=== PATIENT | male | born 1955 | race Caucasian/White ===

== ENCOUNTER 2022-11-03 18:53 | Observation (INO) | payer MEDICARE, MEDICAID ==
[2022-11-03] MEDS ORDERED: Ondansetron PF 4 MG/2 ML Vial IVP PRN (20:24)
[2022-11-03] MEDS ORDERED: Acetaminophen 325 MG TAB PO PRN (20:24)
[2022-11-03] MEDS ORDERED: Calcium Carbonate 500 MG ChewTAB PO PRN (20:24)
[2022-11-03] MEDS ORDERED: Senokot S 8.6-50 MG TAB PO PRN (20:24)
[2022-11-03] MEDS ORDERED: Guaifenesin DM 100-10/5 ML UDCUP PO PRN (20:24)
[2022-11-03] MEDS ORDERED: Lactated Ringer's 500 ML IV SCH (20:30)
[2022-11-03] MEDS ORDERED: Lorazepam 0.5 MG TAB PO PRN (20:30)
[2022-11-03] MEDS ORDERED: Atorvastatin Calcium 10 MG TAB PO SCH (21:00)
[2022-11-03] MEDS ORDERED: QUEtiapine 100 MG TAB PO SCH (21:00)
[2022-11-03] MEDS ORDERED: Mirtazapine 15 MG Soltab PO SCH (21:00)
[2022-11-03] MEDS: levETIRAcetam 500 MG TAB PO SCH (21:44)
[2022-11-03] MEDS: Oxymetazoline HCl 0.05% ( 15 ML ) NASAL SCH (21:44)
[2022-11-03 22:36] VITALS: BMI 24.9
[2022-11-04 04:49] LABS: Anion Gap 13 mmol/L (10-20); BUN (Urea Nitrogen) 27 mg/dL (8.4-25.7); Calc. Creatinine Clearance 35 mL/min (70-130); Calcium 9.5 mg/dL (7.8-10.44); Carbon Dioxide 22 mmol/L (23-31); Chloride 110 mmol/L (98-107); Estimated GFR 33; Glucose 92 mg/dL (80-115); Potassium 4.1 mmol/L (3.5-5.1); Sodium 141 mmol/L (136-145)
[2022-11-04 05:08] LABS: Thyroid Stimulating Hormone 2.8829 uIU/mL (0.35-4.94)
[2022-11-04] MEDS ORDERED: Levothyroxine Sodium 25 MCG TAB PO SCH (06:00)
[2022-11-04] MEDS: levETIRAcetam 500 MG TAB PO SCH (08:37)
[2022-11-04] MEDS: Oxymetazoline HCl 0.05% ( 15 ML ) NASAL SCH (08:49)
[2022-11-04] MEDS ORDERED: Multivitamin W/ Minerals 1 TAB PO SCH (09:00)
[2022-11-04] MEDS ORDERED: Aspirin 81 mg Enteric Coated Tablet PO SCH (09:00)
[2022-11-04] MEDS ORDERED: Propranolol 10 MG TAB PO SCH (09:00)
[2022-11-04] MEDS ORDERED: Amiodarone 200 MG TAB PO SCH (09:00)
[2022-11-04] MEDS ORDERED: Fluticasone Propionate Nasal Spray 16 gm Bottle NASAL SCH (09:00)
[2022-11-04 17:18] VITALS: BP 120/67; TEMP 97.9
== END 2022-11-04 18:32 | disposition home or self-care (01) ==
LOC: INTOOBSV 18:53 → CSHTELE 18:53
PROVIDERS: ADMIT Emergency Medicine; ATTEND Emergency Medicine
DX: R42 Dizziness and giddiness (principal); I11.0 Hypertensive heart disease with heart failure; I50.20 Unspecified systolic (congestive) heart failure; I07.1 Rheumatic tricuspid insufficiency; E78.5 Hyperlipidemia, unspecified; F41.8 Other specified anxiety disorders; E03.9 Hypothyroidism, unspecified; F31.9 Bipolar disorder, unspecified; R29.6 Repeated falls; N28.9 Disorder of kidney and ureter, unspecified; D53.9 Nutritional anemia, unspecified; Z95.5 Presence of coronary angioplasty implant and graft; Z79.890 Hormone replacement therapy; Z79.899 Other long term (current) drug therapy
CPT/HCPCS: 70551; 80048; 82607; 84443; 93306; 93880; 96372; G0378 ×2; 36415; J1650; J7120

== ENCOUNTER 2023-10-17 10:53 | Emergency (ER) | payer MEDICARE, MEDICAID ==
[2023-10-17 12:09] LABS: #Basophils 0.04 10x3/uL (0.0-0.2); #Eosinphils 0.05 10x3/uL (0.0-0.5); #Monocytes 0.58 10x3/uL (0.0-1.1); #Neutrophils 6.23 10x3/uL (1.5-8.4); %Basophils 0.5 % (0.0-2.0); %Eosinophils 0.6 % (0.0-6.0); %Lymphocytes 17.1 % (18.0-47.0); %Monocytes 6.9 % (0.0-10.0); %Neutrophils 74.7 % (40.0-75.0); Hematocrit 38.4 % (38.8-50.0); Hemoglobin 13.2 g/dL (13.5-17.5); Mean Corpuscular HGB CONC 34.4 g/dL (32.0-36.0); Mean Corpuscular Hemoglobin 33.2 pg (27.0-33.0); Mean Corpuscular Volume 96.7 fL (81.2-95.1); Mean Platelet Volume 10.6 fL (7.4-10.4); Platelet Count 148 10x3/uL (150-450); RBC Distribution Width 12.7 % (11.5-14.5); Red Blood Cell (RBC) Count 3.97 10x6/uL (4.32-5.72); White Blood Cell (WBC) Count 8.4 10x3/uL (3.5-10.5)
[2023-10-17 12:11] LABS: Acetaminophen Less than 10 mcg/mL (10.0-30.0); Alcohol Less than 10.0 mg/dL (Less than 10); Lipase 59 U/L (8-78); Salicylate Less than 8.0 mg/dL (15.0-30.0)
[2023-10-17 12:12] LABS: ALT (SGPT) 9 U/L (8-55); AST (SGOT) 13 U/L (5-34); Albumin 3.4 g/dL (3.4-4.8); Alkaline Phosphatase 61 U/L (40-110); Anion Gap 14 mmol/L (10-20); BUN (Urea Nitrogen) 27 mg/dL (8.4-25.7); Bilirubin, Total 0.3 mg/dL (0.2-1.2); CK (CPK) 26 U/L (30-200); Calc. Creatinine Clearance 0 mL/min (70-130); Calcium 10.1 mg/dL (7.8-10.44); Carbon Dioxide 22 mmol/L (23-31); Chloride 112 mmol/L (98-107); Estimated GFR 27; Globulin 3.5 g/dL (2.4-3.5); Glucose 94 mg/dL (80-115); Potassium 4.1 mmol/L (3.5-5.1); Protein, Total 6.9 g/dL (5.8-8.1); Sodium 144 mmol/L (136-145)
[2023-10-17 12:18] LABS: Bilirubin Neg (Negative); Blood, Urine 50 (Negative); Clarity Clear (Clear); Glucose, Urine (Dipstick) Normal (Negative); Ketone, Urine Negative (Negative); Leukocyte Negative (Negative); Nitrite Negative (Negative); Protein, Urine (Dipstick) Negative (Neg-Trace); Urobilinogen Normal mg/dL (Less than 2)
[2023-10-17 12:24] LABS: Amphetamine Not Detected (NotDetected); Barbiturates Screen Not Detected (NotDetected); Benzodiazepine Screen Not Detected (NotDetected); Cocaine Metabolite Screen Not Detected (NotDetected); Methadone Not Detected (NotDetected); Methamphetamine Not Detected (NotDetected); Opiate Screen Not Detected (NotDetected); Oxycodone Screen Not Detected (NotDetected); Phencyclidine (PCP) Not Detected (NotDetected); THC/Cannabinoid Screen Not Detected (NotDetected); Tricyclic Screen Not Detected (NotDetected)
[2023-10-17 12:26] LABS: Troponin I Less than 0.010 ng/mL (< 0.028)
[2023-10-17 12:54] LABS: Influenza A by NAA Not Detected (NotDetected); Influenza B by NAA Not Detected (NotDetected); SARS-CoV-2 NAA Rapid Test Not Detected (NotDetected)
[2023-10-17 12:57] LABS: CAUTI Indications for Culture Alt mental st,lethar; WBC/HPF 0-3 HPF (0-3)
[2023-10-17 13:03] LABS: Bacteria/HPF None Seen HPF (None Seen); Transitional Epithelial 0-3 HPF (None Seen)
[2023-10-17 13:05] LABS: Urine Culture Reflex No No
== END 2023-10-17 13:13 | disposition home or self-care (01) ==
LOC: CSHERS 10:53
DX: E86.0 Dehydration (principal); I50.9 Heart failure, unspecified
CPT/HCPCS: 0240U; 51701; 70450; 71045; 80306; 80307; 81001; 82140; 82550; 83690; 84484; 87040; 93005; 99285; 36415; 80053; 84443; 85025

== ENCOUNTER 2023-10-23 21:10 | Inpatient (IN) | payer MEDICARE, MEDICAID ==
[2023-10-23 22:31] LABS: #Basophils 0.06 10x3/uL (0.0-0.2); #Eosinphils 0.08 10x3/uL (0.0-0.5); #Monocytes 0.69 10x3/uL (0.0-1.1); %Basophils 0.7 % (0.0-2.0); %Eosinophils 0.9 % (0.0-6.0); %Lymphocytes 20.9 % (18.0-47.0); %Monocytes 8.2 % (0.0-10.0); %Neutrophils 68.8 % (40.0-75.0); Hematocrit 41.8 % (38.8-50.0); Hemoglobin 13.7 g/dL (13.5-17.5); Mean Corpuscular HGB CONC 32.8 g/dL (32.0-36.0); Mean Corpuscular Hemoglobin 32.5 pg (27.0-33.0); Mean Corpuscular Volume 99.3 fL (81.2-95.1); Mean Platelet Volume 10.8 fL (7.4-10.4); Platelet Count 158 10x3/uL (150-450); RBC Distribution Width 12.8 % (11.5-14.5); Red Blood Cell (RBC) Count 4.21 10x6/uL (4.32-5.72); White Blood Cell (WBC) Count 8.4 10x3/uL (3.5-10.5)
[2023-10-23 22:33] LABS: Bilirubin Neg (Negative); Blood, Urine Negative (Negative); Clarity Clear (Clear); Glucose, Urine (Dipstick) Normal (Negative); Ketone, Urine Negative (Negative); Leukocyte 25 (Negative); Nitrite Positive (Negative); Protein, Urine (Dipstick) 15 mg/dl (Neg-Trace); Urobilinogen Normal mg/dL (Less than 2)
[2023-10-23 22:38] LABS: Bacteria/HPF 1+ HPF (None Seen); CAUTI Indications for Culture Alt mental st,lethar; RBC/HPF None Seen HPF (0-3); Squamous Epithelial 0-3 HPF (0-3)
[2023-10-23 22:39] LABS: Urine Culture Reflex No No
[2023-10-23 22:42] LABS: ALT (SGPT) 11 U/L (8-55); AST (SGOT) 12 U/L (5-34); Albumin 3.1 g/dL (3.4-4.8); Alkaline Phosphatase 61 U/L (40-110); Anion Gap 16 mmol/L (10-20); BUN (Urea Nitrogen) 44 mg/dL (8.4-25.7); Bilirubin, Total 0.3 mg/dL (0.2-1.2); Calc. Creatinine Clearance 0 mL/min (70-130); Calcium 10.1 mg/dL (7.8-10.44); Carbon Dioxide 20 mmol/L (23-31); Chloride 119 mmol/L (98-107); Estimated GFR 26; Glucose 92 mg/dL (80-115); Protein, Total 7.1 g/dL (5.8-8.1)
[2023-10-23 22:45] LABS: Sodium 151 mmol/L (136-145)
[2023-10-23] MEDS ORDERED: cefTRIAXone (ROCEPHIN) 1 GM VIAL ONE (22:54)
[2023-10-24] MEDS ORDERED: Ondansetron PF 4 MG/2 ML Vial IVP PRN (00:56)
[2023-10-24] MEDS ORDERED: Calcium Carbonate 500 MG ChewTAB PO PRN (00:56)
[2023-10-24] MEDS ORDERED: Acetaminophen 325 MG TAB PO PRN (00:56)
[2023-10-24] MEDS ORDERED: Guaifenesin DM 100-10/5 ML UDCUP PO PRN (00:56)
[2023-10-24] MEDS: Lactated Ringer's 1,000 ML IV SCH (02:35)
[2023-10-24 02:47] VITALS: BMI 24.3
[2023-10-24 03:51] LABS: #Basophils 0.05 10x3/uL (0.0-0.2); #Eosinphils 0.13 10x3/uL (0.0-0.5); #Monocytes 0.68 10x3/uL (0.0-1.1); #Neutrophils 5.85 10x3/uL (1.5-8.4); %Basophils 0.6 % (0.0-2.0); %Eosinophils 1.5 % (0.0-6.0); %Lymphocytes 21.3 % (18.0-47.0); %Neutrophils 68.4 % (40.0-75.0); Anion Gap 15 mmol/L (10-20); BUN (Urea Nitrogen) 44 mg/dL (8.4-25.7); Calc. Creatinine Clearance 30 mL/min (70-130); Carbon Dioxide 21 mmol/L (23-31); Chloride 120 mmol/L (98-107); Estimated GFR 28; Glucose 91 mg/dL (80-115); Hematocrit 39.4 % (38.8-50.0); Hemoglobin 12.8 g/dL (13.5-17.5); Mean Corpuscular HGB CONC 32.5 g/dL (32.0-36.0); Mean Corpuscular Hemoglobin 32.6 pg (27.0-33.0); Mean Corpuscular Volume 100.3 fL (81.2-95.1); Mean Platelet Volume 10.6 fL (7.4-10.4); Platelet Count 155 10x3/uL (150-450); Potassium 4.2 mmol/L (3.5-5.1); RBC Distribution Width 12.7 % (11.5-14.5); Red Blood Cell (RBC) Count 3.93 10x6/uL (4.32-5.72); White Blood Cell (WBC) Count 8.6 10x3/uL (3.5-10.5)
[2023-10-24 03:52] LABS: Critical Call Chemistry OS.YZ @0344; Sodium 152 mmol/L (136-145)
[2023-10-24] MEDS: Senokot S 8.6-50 MG TAB PO PRN (06:44)
[2023-10-24] MEDS: Levothyroxine Sodium 50 MCG TAB PO SCH (06:44)
[2023-10-24 08:22] VITALS: BMI 24.3
[2023-10-24] MEDS ORDERED: medroxyPROGESTERone Acetate 2.5 MG TAB PO SCH (09:00)
[2023-10-24] MEDS: risperiDONE 0.5 MG TAB PO SCH (09:01)
[2023-10-24] MEDS: Amiodarone 200 MG TAB PO SCH (09:01)
[2023-10-24] MEDS: Aspirin 81 mg Enteric Coated Tablet PO SCH (09:01)
[2023-10-24] MEDS: Venlafaxine HCl XR 75 MG CAP PO SCH (09:01)
[2023-10-24] MEDS: levETIRAcetam 500 MG TAB PO SCH (09:01)
[2023-10-24] MEDS: Enoxaparin 40 MG (0.4 mL) SYRINGE SC SCH (09:02)
[2023-10-24] MEDS: Divalproex Sodium 250 MG ER.TAB PO SCH (09:26)
[2023-10-24 10:07] LABS: Anion Gap 11 mmol/L (10-20); BUN (Urea Nitrogen) 40 mg/dL (8.4-25.7); Calc. Creatinine Clearance 32 mL/min (70-130); Calcium 9.7 mg/dL (7.8-10.44); Carbon Dioxide 23 mmol/L (23-31); Chloride 121 mmol/L (98-107); Estimated GFR 30; Glucose 78 mg/dL (80-115); Potassium 4.1 mmol/L (3.5-5.1)
[2023-10-24 10:10] LABS: Critical Call Chemistry NUR.ET2@1007; Sodium 151 mmol/L (136-145)
[2023-10-24] MEDS: medroxyPROGESTERone Acetate 5 MG TAB PO SCH (13:30)
[2023-10-24 17:11] LABS: Anion Gap 12 mmol/L (10-20); BUN (Urea Nitrogen) 38 mg/dL (8.4-25.7); Calc. Creatinine Clearance 33 mL/min (70-130); Calcium 9.6 mg/dL (7.8-10.44); Carbon Dioxide 23 mmol/L (23-31); Chloride 121 mmol/L (98-107); Estimated GFR 31; Glucose 113 mg/dL (80-115); Potassium 4.1 mmol/L (3.5-5.1)
[2023-10-24 17:12] LABS: Sodium 152 mmol/L (136-145)
[2023-10-24] MEDS: Dextrose 5% in Water 1,000 ML IV SCH (20:26)
[2023-10-24] MEDS: traZODone HCl 50 MG TAB PO SCH (20:27)
[2023-10-24] MEDS: Atorvastatin Calcium 10 MG TAB PO SCH (20:27)
[2023-10-24] MEDS: cefTRIAXone\\ROCEPHIN 1 GM in Sodium Chloride 0.9% 100 ML IVPB SCH (23:26)
[2023-10-25 04:04] LABS: Anion Gap 10 mmol/L (10-20); BUN (Urea Nitrogen) 31 mg/dL (8.4-25.7); Calc. Creatinine Clearance 34 mL/min (70-130); Calcium 9.5 mg/dL (7.8-10.44); Carbon Dioxide 22 mmol/L (23-31); Chloride 120 mmol/L (98-107); Estimated GFR 33; Glucose 118 mg/dL (80-115); Potassium 4.2 mmol/L (3.5-5.1); Sodium 148 mmol/L (136-145)
[2023-10-25] MEDS: medroxyPROGESTERone Acetate 5 MG TAB PO SCH (08:55)
[2023-10-25] MEDS: cefTRIAXone\\ROCEPHIN 1 GM in Sodium Chloride 0.9% 100 ML IVPB SCH (21:05)
[2023-10-26 04:10] LABS: Anion Gap 14 mmol/L (10-20); BUN (Urea Nitrogen) 24 mg/dL (8.4-25.7); Calc. Creatinine Clearance 38 mL/min (70-130); Carbon Dioxide 22 mmol/L (23-31); Chloride 115 mmol/L (98-107); Estimated GFR 38; Glucose 112 mg/dL (80-115); Potassium 4.7 mmol/L (3.5-5.1); Sodium 146 mmol/L (136-145)
[2023-10-26] MEDS: Polyethylene Glycol 3350 17 GM Packet PO SCH ×2 (09:00→10:51)
[2023-10-26 10:23] LABS: Free T4 (Free Thyroxine) 1.26 ng/dL (0.70-1.48); Thyroid Stimulating Hormone 6.5563 uIU/mL (0.35-4.94)
[2023-10-26] MEDS: Dextrose 5% in Water 1,000 ML IV SCH (10:31)
[2023-10-26] MEDS: LevoFLOXacin 750 MG TAB PO SCH (10:54)
[2023-10-27 04:41] LABS: Anion Gap 13 mmol/L (10-20); BUN (Urea Nitrogen) 26 mg/dL (8.4-25.7); Calc. Creatinine Clearance 34 mL/min (70-130); Calcium 10.5 mg/dL (7.8-10.44); Carbon Dioxide 22 mmol/L (23-31); Chloride 110 mmol/L (98-107); Estimated GFR 33; Glucose 157 mg/dL (80-115); Potassium 4.4 mmol/L (3.5-5.1); Sodium 141 mmol/L (136-145)
[2023-10-27] MEDS: LevoFLOXacin 750 MG TAB PO SCH (06:17)
[2023-10-27 12:21] VITALS: TEMP 98.2
[2023-10-27 13:02] VITALS: BP 105/70
[2023-10-28] MEDS ORDERED: Levothyroxine Sodium 75 MCG TAB PO SCH (06:00)
[2023-10-29] MEDS ORDERED: LevoFLOXacin 750 MG TAB PO SCH (06:00)
== END 2023-10-27 15:50 | DRG 683 ==
LOC: CSHERS 21:10 → CSHTELE 10-24 00:54
PROVIDERS: ADMIT Student in an Organized Health Care Education/Training Program; ATTEND Family Medicine
DX: N17.9 Acute kidney failure, unspecified (principal); E87.0 Hyperosmolality and hypernatremia; N39.0 Urinary tract infection, site not specified; I50.22 Chronic systolic (congestive) heart failure; F03.93 Unspecified dementia, unspecified severity, with mood disturbance; I13.0 Hypertensive heart and chronic kidney disease with heart failure and stage 1 through stage 4 chronic kidney disease, or unspecified chronic kidney disease; E87.20 Acidosis, unspecified; E83.52 Hypercalcemia; G47.33 Obstructive sleep apnea (adult) (pediatric); B95.2 Enterococcus as the cause of diseases classified elsewhere; R29.6 Repeated falls; E78.5 Hyperlipidemia, unspecified; N18.30 Chronic kidney disease, stage 3 unspecified; R53.81 Other malaise; F31.9 Bipolar disorder, unspecified; F41.9 Anxiety disorder, unspecified; E03.9 Hypothyroidism, unspecified; Z79.82 Long term (current) use of aspirin; Z79.890 Hormone replacement therapy; Z79.899 Other long term (current) drug therapy
CPT/HCPCS: 36415; 71045; 80048; 80053; 81001; 82533; 83735; 84439; 84443; 84481; 85025; 87077; 87086; 87186; 93005; 93010; J0696; J1650; J3490; J7070; J7120